=== PATIENT | male | born 1935 | race Caucasian/White ===

== ENCOUNTER 2016-09-25 07:59 | Day surgery (SDC) | payer MEDICARE, OTHER ==
--- NOTE | ~2016-09-25 | EGD ---
EGD REPORT [facility] [address] [place] [address] NAME: BO LUCIANO : [birth year] STATUS : REG [facility]#: [id number] AGE: 80 ADM/REG DATE : 09/25/16 MR#: [id number] REPORT SERV DATE: 09/25/16 DICTATED BY: ANH OBRIEN DATE: 09/25/16 REPORT STATUS : Draft [facility]ANSCRIBED BY: [facility] DATE: 09/25/16 Pulmonology Patient Name: Bo Luciano Procedure Date: 09/25/2016 9:21 AM Date of : 1935 Attending MD: COLTEN OBRIEN MD Procedure Date No Time: 09/25/2016 Procedure: Pleurx Catheter Removal Indications: PleurX removal (auto-pleurodesis) Providers: COLTEN OBRIEN MD Referring MD: NEHEMIAS VALENCIA MD Medicines: Intradermal lidocaine 2% with epinephrine 1:100,000 20 mls. See anesthesia record Complications: No immediate complications Procedure: Pre-Anesthesia Assessment: - ASA Grade Assessment: III - A patient with severe systemic disease. - A History and Physical has been performed. Patient meds and allergies have been reviewed. The risks and benefits of the procedure and the sedation options and risks were discussed with the patient. All questions were answered and informed consent was obtained. Patient identification and proposed procedure were verified prior to the procedure by the physician and the nurse in the procedure room. Mental Status Examination: alert and oriented. Airway Examination: normal oropharyngeal airway. Respiratory Examination: clear to auscultation and poor air movement. CV Examination: normal and RRR, no murmurs, no S3 or S4. ASA Grade Assessment: III - A patient with severe systemic disease. After reviewing the risks and benefits, the patient was deemed in satisfactory condition to undergo the procedure. The anesthesia plan was to use general anesthesia. Immediately prior to administration of medications, the patient was re-assessed for adequacy to receive sedatives. The heart rate, respiratory rate, oxygen saturations, blood pressure, adequacy of pulmonary ventilation, and response to care were monitored throughout the procedure. The physical status of the patient was re-assessed after the procedure. Findings: After consent was obtained, a time out was performed. The patient was placed in the left lateral decubitus position with the ipsilateral arm above the patient's head. The patient was sedated by anesthesia with conscious sedation. The patient's right pleurX site was sterilized with EGD REPORT [facility] [address] [place]. [address] NAME: BO LUCIANO INEZ : 31 STATUS : REG [facility] [place] PAT#: [id number] AGE: 80 ADM/REG DATE : 09/25/16 MR#: [id number] REPORT SERV DATE: 09/25/16 DICTATED BY: ANH OBRIEN DATE: 09/25/16 REPORT STATUS : Draft TRANSCRIBED BY: [facility] DATE: 09/25/16 chloraprep. Lidocaine with epinephrine was injected at the exit site. Blunt dissection was performed using Li forceps along the pleurX tract and the indwelling cuff was liberated. The pleurX was easily removed and a gauze and tegaderm dressing was placed over the site. Impression: Right pleurX removed Recommendation: - Await test results. - Chest X-ray. Attending Participation: I personally performed the entire procedure. COLTEN OBRIEN MD 09/25/2016 1:30 PM This report has been signed electronically. Number of Addenda: 0 Note Initiated On: 09/25/2016 9:21 AM [address] [place] [address]
[~2016-09-25 07:59] MED LIST: ASAB PO; CALTRA600D PO; CODEINE PO; COUGH PO; COZAAR100 MG PO; DIOVAN HCT PO; DIOVAN HCT160 MG/25 PO; GLUCPH PO; HYDROCHLOROT12.5 MG PO; HYDROMET1 ML PO; LEVAQUIN5T PO; LIPITOR40 PO; MOBIC15 MG PO; MOBIC7.5 PO; PRAVACHOL40 MG PO; PROSCAR5 PO; TOPXL25 PO; TUMSROLL PO
[2016-09-25 08:16] LABS: BASOPHILS 0.1 %; BASOPHILS ABSOLUTE 0.01 10/3/uL (0.0-0.16); EOSINOPHILS 3.2 %; EOSINOPHILS ABSOLUTE 0.24 10/3/uL (0.0-0.53); HEMATOCRIT 32.7 % (40.0-51.0); HEMOGLOBIN 10.2 g/dL (13.6-17.8); IMMATURE GRANULOCYTES 0.3 %; IMMATURE GRANULOCYTES ABSOLUTE 0.02 10/3/uL (0.0-0.11); LYMPHOCYTES 11.2 %; LYMPHOCYTES ABSOLUTE 0.84 10/3/uL (0.67-4.30); MEAN CORPUS HGB CONC 31.2 g/dL (32.0-36.0); MONOCYTES 11.2 %; MONOCYTES ABSOLUTE 0.84 10/3/uL (0.21-1.20); NEUTROPHILS ABSOLUTE 5.53 10/3/uL (2.02-8.40); RED CELL COUNT 3.29 10/6/uL (4.7-6.1); WHITE BLOOD CELLS 7.5 10/3/uL (4.5-10.5)
[2016-09-25 08:19] LABS: MANUAL DIFF NO %; MEAN CORPUSCULAR VOLUME 99.4 fL (80-100); PLATELET COUNT 140 10/3/uL (150-400); RBC DISTRIBUTION WIDTH 18.4 % (12.0-16.0)
[2016-09-25 08:24] LABS: INTERNATIONAL NORMAL RATI 1.1 UNITS (-); PARTIAL THROMBO TIME 33.4 SEC (22.5-37.2); PROTIME (NOT ORD) 13.9 SEC (12.0-14.5)
== END 2016-09-25 23:59 | disposition home or self-care (01) ==
LOC: DMU 07:59
PROVIDERS: Internal Medicine
PROC: 0WP9X3Z Removal of Infusion Device from Right Pleural Cavity, External Approach (ICD-10-PCS; principal; 2016-09-25 09:30)
DX: Z46.82 Encounter for fitting and adjustment of non-vascular catheter (principal); I10 Essential (primary) hypertension; I25.10 Atherosclerotic heart disease of native coronary artery without angina pectoris; M19.90 Unspecified osteoarthritis, unspecified site; E11.9 Type 2 diabetes mellitus without complications; E78.00 Pure hypercholesterolemia, unspecified; N40.0 Benign prostatic hyperplasia without lower urinary tract symptoms; Z79.52 Long term (current) use of systemic steroids; Z79.899 Other long term (current) drug therapy; Z98.890 Other specified postprocedural states
CPT/HCPCS: 71010; 85025; 85610; 85730; 93005; A9270-GY